=== PATIENT | female | born 1935 | race Caucasian/White ===

== ENCOUNTER → 2024-08-26 10:13 | Outpatient (REF) | payer MEDICARE, SELFPAY | LOC: RCS 10:13 | PROVIDERS: ATTENDING PHYSICIAN Internal Medicine Cardiovascular Disease; FAMILY PHYSICIAN Nurse Practitioner Adult Health | DX: I48.11 Longstanding persistent atrial fibrillation (principal); I34.1 Nonrheumatic mitral (valve) prolapse | CPT/HCPCS: 93306 ==

== ENCOUNTER 2024-10-28 06:22 | Day surgery (SDC) | payer MEDICARE, SELFPAY ==
[2024-10-28] VITALS (10 sets, daily range): BP systolic 103–134; BP diastolic 60–95; BMI 23.7
[2024-10-28 07:18] LABS: Hematocrit 37.1 % (37.0-47.0); Hemoglobin 12.4 g/dL (12.0-16.0); Mean Corp Hgb Conc. 33.4 g/dL (33.0-37.0); Mean Corpuscular Hgb 31.7 pg (27.0-31.0); Mean Corpuscular Volume 94.9 fL (81.0-99.0); Mean Platelet Volume 9.7 fL (7.4-10.4); Platelet Count 189 10^3/uL (130-400); Red Blood Cell Count 3.91 10^6/uL (4.20-5.40); Red Cell Dist. Width 13.3 % (11.5-14.5); White Blood Cell Count 4.1 10^3/uL (4.8-10.8)
[2024-10-28] MEDS: LOW STRENGTH ASPIRIN 324 MG PO (07:19)
[2024-10-28 07:39] LABS: ALT (SGPT) 25 U/L (0-35); AST (SGOT) 31 U/L (14-36); Albumin 4.3 g/dl (3.5-5.0); Alkaline Phosphatase 96 U/L (38-126); Blood Urea Nitrogen 30 mg/dl (7-17); Calcium 9.2 mg/dl (8.4-10.2); Carbon Dioxide 32 mmol/L (22-30); Chloride 103 mmol/L (98-107); Estimated Creatinine Clearance 55 ml/min; Glucose 105 mg/dl (70-99); Potassium 4.4 mmol/L (3.5-5.1); Sodium 142 mmol/L (135-145); Total Bilirubin 1.2 mg/dl (0.2-1.3); eGFR > 60.00
--- NOTE | 2024-10-28 09:42 | ITS.CL.CATH ---
[employer] - Catheterization
Cardiac Catheterization
Procedure Report:
LEFT AND RIGHT HEART CATHETERIZATION
Date of Procedure: October 28, 2024
Referring: Danni Hill
PROCEDURES:
1. Left heart catheterization, coronary angiogram.
2. Right heart catheterization.
3. Ultrasound-guided access
INDICATION: Mr. Verduzco is a 89-year-old female with significant comorbid conditions including hypertension, hyperlipidemia, heart failure with preserved ejection fraction, migraine headaches, chronic permanent atrial fibrillation on longstanding
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
for ongoing dyspnea on exertion.
ACCESS:
1. Right radial artery, 5 [place] sheath, under ultrasound guidance.
2. Right brachial vein, 6 [place] sheath
HEMODYNAMICS : (mmHg)
RA (m) : 16
RV (s/d,m) : 34/10, 13
PA (s/d, m) : 35/17, 25
PCWP (m) : 20
PA saturation: 66.7% on room air
AO saturation: 88.8% on room air
RA saturation: 66.5% on room air
Cardiac Output : 4.60 L/min
Cardiac Index : 2.83 L/min/m-2
Systemic vascular resistance: 1060 dsc^(-5)
Pulmonary vascular resistance: 1.96woods unit
AO (s/d) : 93/60
LV (s/d) : 94/9
LVEDP : 18
Heart rate: 77 bpm
CORONARY FINDINGS
DOMINANCE: Right
LEFT MAIN: The left main artery is a large-caliber vessel which gives rise to the left anterior descending artery and the left circumflex artery. There is minimal luminal irregularities.
LEFT ANTERIOR DESCENDING: The left anterior descending artery is a medium to large caliber vessel which gives rise to multiple small caliber diagonal branches as it courses to the anterior interventricular groove and wraps around the apex. Mid LAD
has diffuse up to 40 to 50% atherosclerotic plaque.
CIRCUMFLEX: The left circumflex artery is a medium caliber vessel which gives rise to 2 major obtuse marginal branches. There is mild diffuse atherosclerotic plaque.
RIGHT CORONARY ARTERY: The right coronary artery is a large-caliber, dominant vessel which gives rise to the right posterior descending artery and a small right posterolateral system. There is mild diffuse atherosclerotic plaque.
SEDATION: 61 minutes of procedural sedation was utilized. An independent medical transcription was present to assist with and help manage the patient's level of consciousness and physiologic status.
RADIATION SUMMARY: Fluoro Time (min): 11.1, Dose (mGy): 371.12, DAP (Gy.cm2) : 28.6
Closure Device: 1. Vascular band over right radial artery, 10 cc of air.
2. Manual pressure was held over the brachial venous access site with successful hemostasis.
CONCLUSIONS
1. No obstructive coronary artery disease.
2. Elevated right and left-sided filling pressures (right worse than left) with normal cardiac output
RECOMMENDATIONS
1. Plan to discuss at the next structural meeting given multivalve disease including moderate to severe mitral and tricuspid regurgitation the role of possible MitraClip.
2. Optimization of underlying medical therapy to optimize filling pressures and improve symptoms.
3. Wean radial band per protocol.
4. Ongoing management of cardiovascular risk factors.
5. Plan to resume Xarelto later tonight as long as no issues with access sites.
Copy to: Danni Hill
Christianne Landry MD, [facility], [facility]
== END 2024-10-28 12:10 | disposition home or self-care (01) ==
LOC: CATH 06:22
PROVIDERS: ATTENDING PHYSICIAN Internal Medicine Interventional Cardiology; FAMILY PHYSICIAN Nurse Practitioner Adult Health; OTHER PHYSICIAN Internal Medicine Cardiovascular Disease
DX: I25.10 Atherosclerotic heart disease of native coronary artery without angina pectoris (principal); I08.1 Rheumatic disorders of both mitral and tricuspid valves; R06.09 Other forms of dyspnea; Z79.01 Long term (current) use of anticoagulants; I48.21 Permanent atrial fibrillation; G43.909 Migraine, unspecified, not intractable, without status migrainosus; E78.5 Hyperlipidemia, unspecified; I50.30 Unspecified diastolic (congestive) heart failure; I11.0 Hypertensive heart disease with heart failure
CPT/HCPCS: 99152; 99153; 80053; 85027; 93460; C1769; C1894; Q9967

== ENCOUNTER → 2025-01-09 12:46 | Outpatient (REF) | payer MEDICARE, SELFPAY | LOC: HWRCS 12:46 | PROVIDERS: ATTENDING PHYSICIAN Internal Medicine Cardiovascular Disease; FAMILY PHYSICIAN Nurse Practitioner Adult Health | DX: I48.20 Chronic atrial fibrillation, unspecified (principal) | CPT/HCPCS: 93306 ==

== ENCOUNTER 2025-02-13 07:20 | Day surgery (SDC) | payer MEDICARE, SELFPAY | END 2025-02-13 10:15 | disposition home or self-care (01) | LOC: CATH 07:20 | PROVIDERS: ATTENDING PHYSICIAN Nuclear Medicine Nuclear Cardiology; FAMILY PHYSICIAN Internal Medicine; OTHER PHYSICIAN Internal Medicine Cardiovascular Disease | DX: I08.3 Combined rheumatic disorders of mitral, aortic and tricuspid valves (principal); I08.8 Other rheumatic multiple valve diseases; I70.0 Atherosclerosis of aorta; I10 Essential (primary) hypertension; I48.19 Other persistent atrial fibrillation | CPT/HCPCS: 93312; 93320; 93325; 93005 ==

== ENCOUNTER → 2025-04-04 14:12 | Outpatient (REF) | payer MEDICARE, SELFPAY | LOC: HWRAD 14:12 | PROVIDERS: ATTENDING PHYSICIAN Nurse Practitioner Adult Health | DX: R41.82 Altered mental status, unspecified (principal); R47.89 Other speech disturbances; F03.92 Unspecified dementia, unspecified severity, with psychotic disturbance; I48.20 Chronic atrial fibrillation, unspecified | CPT/HCPCS: 70450 ==